=== PATIENT | female | born 1995 | race Caucasian/White ===

== ENCOUNTER 2017-01-21 13:26 | Emergency (ER) | payer SELFPAY ==
[~2017-01-21] VITALS: Ht 170.2 cm; Wt 64.0 kg
[2017-01-21 13:28] VITALS: BP 136/92; PULSE 108; RESP 16; TEMP 98.5; O2SAT 99
--- NOTE | 2017-01-21 15:30 | PD ---
HPI Chief Complaint: ENT Complaint Time Seen by Provider: 15:29 Travel History International Travel<30 days: No Contact w/Intl Traveler<30days: No Traveled to known affect area: No History of Present Illness HPI 21-year-old female presents to emergency department for evaluation of sore throat, cough and chest congestion worsening over last 24 hours. Patient states that he began with a sore throat but now she has cough and chest congestion. Is nonproductive. States it is difficult to swallow. Subjective fever and chills. No nausea or vomiting. No other symptoms to report. PFSH Past Medical History Medical History: Denies Significant Hx Social History Alcohol Use: No Tobacco Use: No Substance Use: No Allergies-Medications (Allergen,Severity, Reaction): Coded Allergies: No Known Allergies (Unverified , 01/21/17) Reported Meds & Prescriptions Reported Meds & Active Scripts Active Tessalon Perles (Benzonatate) 100 Mg Cap 200 Mg PO TID PRN Proair Hfa 8.5 GM Inh (Albuterol Sulfate) 90 Mcg/Act Aer 2 Puff INH Q4H PRN 108 mcg/actuation Prednisone 50 Mg Tab 50 Mg PO DAILY 5 Days Review of Systems Except as stated in HPI: all other systems reviewed are Neg Physical Exam Narrative GENERAL: Well-nourished, well-developed female patient, in no acute distress SKIN: Warm and dry. HEAD: Normocephalic. Atraumatic EYES: No scleral icterus. No injection or drainage. ENT: Mucosa pink and moist. Mild erythema without exudate. No uvular edema. No uvular, palatal, or tonsillar deviation. Airway patent. Nasal turbinates appear normal without nasal blood, purulent drainage or septal hematoma. NECK: Supple, trachea midline. No JVD or lymphadenopathy. CARDIOVASCULAR: Regular rate and rhythm without murmurs, gallops, or rubs. RESPIRATORY: Breath sounds equal bilaterally. Diminished with an intermittent inspiratory wheeze. No accessory muscle use. GASTROINTESTINAL: Abdomen soft, non-tender, nondistended. MUSCULOSKELETAL: No cyanosis, or edema. BACK: Nontender without obvious deformity. No CVA tenderness. Data Data Last Documented VS Vital Signs Date Time Temp Pulse Resp B/P Pulse Ox O2 Delivery O2 Flow Rate FiO2 01/21/17 13:28 98.5 108 16 136/92 99 Room Air Orders Group A Rapid Strep Screen (01/21/17 15:30) Influenzae A/B Antigen (01/21/17 15:30) Strep Culture (Group A) (01/21/17 16:20) MDM Medical Decision Making Medical Screen Exam Complete: Yes Emergency Medical Condition: Yes Medical Record Reviewed: Yes Differential Diagnosis Bronchitis versus common cold versus pneumonia versus influenza versus pharyngitis strep versus viral Narrative Course 21-year-old female presents to emergency department for evaluation. The patient does have mildly erythematous pharynx. Rapid strep screen is negative. Influenza is negative. This is likely a viral URI. Patient will be prescribed symptom control. She is counseled on care. She agrees to return immediately with any acute worsening of symptoms. Diagnosis Primary Impression: Upper respiratory infection Qualified Code: J06.9 - Viral upper respiratory tract infection Additional Impression: Pharyngitis Qualified Code: J02.9 - Pharyngitis, unspecified etiology Referrals: Primary Care Physician Patient Instructions: General Instructions, Upper Respiratory Infection (ED) Additional Instructions: Follow-up with a primary care provider Warm salt water gargles may help to alleviate symptoms Humidified air may help to alleviate symptoms Follow-up with a primary care provider Return immediately to the emergency department with any acute worsening of symptoms Med/Other Pt SpecificInfo: Prescription(s) given Scripts Benzonatate (Tessalon Perles)100 Mg [id number] Mg PO TID PRN (COUGH) #20 CAP Ref 0 Prov:Carmen Sosa 01/21/17 Albuterol 8.5 GM Inh (Proair Hfa 8.5 GM Inh)90 Mcg/Act Aer2 Puff INH Q4H PRN ( SHORTNESS OF BREATH) #1 INHALER Ref 0 108 mcg/actuation Prov:Carmen Sosa 01/21/17 Prednisone 50 Mg Tab50 Mg PO DAILY 5 Days Ref 0 Prov:Carmen Sosa 01/21/17 Disposition: 01 DISCHARGE HOME Condition: Stable Carmen Sosa Jan 21, 2017 15:30
[2017-01-21] MEDS ORDERED: PRED50 PO (17:15)
[2017-01-21] MEDS ORDERED: ALBUAER3 INH (17:15)
[2017-01-21] MEDS ORDERED: BENZ100 PO (17:15)
== END 2017-01-21 17:58 | disposition home or self-care (01) ==
LOC: NEPB 13:26
DX: J06.9 Acute upper respiratory infection, unspecified (principal); J02.9 Acute pharyngitis, unspecified
CPT/HCPCS: 87081; 87804; 87880; 99284